=== PATIENT | male | born 1995 | race African-American/Black ===

== ENCOUNTER 2016-12-06 17:06 | Emergency (ER) | payer SELFPAY ==
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
== END 2016-12-06 19:56 | disposition home or self-care (01) ==
LOC: CED 17:06 → CFTX 17:06
DX: S60.212A Contusion of left wrist, initial encounter (principal); S80.02XA Contusion of left knee, initial encounter; V43.52XA Car driver injured in collision with other type car in traffic accident, initial encounter; Y92.410 Unspecified street and highway as the place of occurrence of the external cause
CPT/HCPCS: 73110; 73562; 99284